=== PATIENT | female | born 1990 | race Caucasian/White ===

== ENCOUNTER 2016-10-30 16:20 | Emergency (ER) | payer MEDICARE, OTHER ==
[~2016-10-30] VITALS: Ht 165.1 cm; Wt 74.8 kg
[2016-10-30] MEDS ORDERED: IBUPROFEN800 MG PO (16:43)
[2016-10-30] MEDS ORDERED: KEFLEX500 MG PO (17:33)
== END 2016-10-30 18:15 | disposition home or self-care (01) ==
LOC: ED 16:20
DX: N61.0 Mastitis without abscess (principal); R42 Dizziness and giddiness; R51 Headache
CPT/HCPCS: 80053; 85025; 96374; 99283; J0690; J7030

== ENCOUNTER 2017-12-03 16:19 | Emergency (ER) | payer MEDICARE ==
[~2017-12-03] VITALS: Ht 165.1 cm; Wt 65.8 kg
[~2017-12-03 16:19] MED LIST: IBUPROFEN800 MG PO; KEFLEX500 MG PO
[2017-12-03] MEDS ORDERED: NAPROSYN500 MG PO (16:47)
[2017-12-03] MEDS ORDERED: ZOFRAN ODT4 MG SL (16:47)
== END 2017-12-03 17:11 | disposition home or self-care (01) ==
LOC: ED 16:19
DX: J98.9 Respiratory disorder, unspecified (principal); B97.89 Other viral agents as the cause of diseases classified elsewhere; F17.200 Nicotine dependence, unspecified, uncomplicated
CPT/HCPCS: 96374; 99283; J1885

== ENCOUNTER 2020-07-30 15:58 | Emergency (ER) | payer OTHER ==
[~2020-07-30] VITALS: Ht 165.1 cm; Wt 59.0 kg
[~2020-07-30 15:58] MED LIST changes: +ADDERALL 10 MG10 MG PO; +AMPHETAMINE SAL10 MG PO; +BUPROPION XL300 MG PO; +HYDROXYZINE PAM25 MG PO; +METHYLPHENIDATE5 MG PO; +NAPROSYN500 MG PO; +ONDANSETRON ODT8 MG PO; +ONDANSETRON ODT8 MG SL; +SERTRALINE HCL100 MG PO; +ZOFRAN ODT4 MG SL; +ZOFRAN4 MG PO
--- OUTSIDE RECORDS SUMMARY | 2020-07-30 16:06 | XMS ---
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 Care History Medical/Surgical 05/19/2020 [facility] - Patient is currently established with [facility]. If patient is seen in the ED during business hours. Please contact CHWs at [facility]. Care Recommendation: If this patient has had 5 or more Emergency Department visits in the last 12 months.\T\nbsp; Patient will require education on the scope and purpose of the ED as an acute care provider not a Primary Care Provider and should not be utilized for chronic conditions.\T\nbsp; These are guidelines and the provider should exercise clinical judgment when providing care. E.D. VISIT COUNT (12 MO.) 1 [facility] 2 [facility] TOTAL 3 NOTE: Visits indicate total known visits. ED/C VISIT TRACKING (12 MO.) 07/30/2020 16:00 [facility] TYPE: Emergency COMPLAINT: - SELF CUTTING 05/22/2020 15:41 [facility] TYPE: Emergency DIAGNOSES: - Altered Mental Status - Acidosis - Unspecified abdominal pain - Transient alteration of awareness - Other symptoms and signs involving cognitive functions and awareness 05/18/2020 03:45 [facility] TYPE: Emergency COMPLAINT: - VOMITING INPATIENT VISIT TRACKING (12 MO.) 05/18/2020 03:46 [facility] TYPE: Observation COMPLAINT: - INTRACTABLE VOMITING, HYPOKALEMIA DIAGNOSES: - Bipolar disorder, current episode mixed, severe, without psychotic features - Nausea with vomiting, unspecified - Hypokalemia - Anxiety disorder, unspecified - Nicotine dependence, unspecified, uncomplicated [email or web address]
[2020-07-30] MEDS ORDERED: HYDRALAZINE HCL25 MG PO (18:30)
== END 2020-07-30 18:57 | disposition home or self-care (01) ==
LOC: ED 15:58
DX: S71.112A Laceration without foreign body, left thigh, initial encounter (principal); S71.111A Laceration without foreign body, right thigh, initial encounter; S41.112A Laceration without foreign body of left upper arm, initial encounter; F41.9 Anxiety disorder, unspecified; W45.8XXA Other foreign body or object entering through skin, initial encounter; F17.200 Nicotine dependence, unspecified, uncomplicated; Z79.899 Other long term (current) drug therapy
CPT/HCPCS: 99283

== ENCOUNTER 2020-10-10 02:39 | Emergency (ER) | payer OTHER ==
[~2020-10-10] VITALS: Ht 165.1 cm; Wt 59.0 kg
[~2020-10-10 02:39] MED LIST changes: +HYDRALAZINE HCL25 MG PO
--- OUTSIDE RECORDS SUMMARY | 2020-10-10 02:42 | XMS ---
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 05/19/2020-Current PHONE: [phone] Marcelo has no Care Guidelines for this patient. Care History Medical/Surgical 05/19/2020 [facility] - Patient is currently established with [facility]. If patient is seen in the ED during business hours. Please contact CHWs at [facility]. Care Recommendation: If this patient has had [...] care. E.D. VISIT COUNT (12 MO.) 1 [facility] 3 [facility] TOTAL 4 NOTE: Visits indicate total known visits. 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 - Laceration without foreign body of left upper arm, initial encounter - Laceration without foreign body, right thigh, initial encounter 05/22/2020 15:41 [facility] TYPE: Emergency DIAGNOSES: - Altered Mental Status - Acidosis - Unspecified abdominal pain - Transient alteration of awareness - Other symptoms and signs involving cognitive functions and awareness 05/18/2020 03:45 [facility] TYPE: Emergency COMPLAINT: - VOMITING INPATIENT VISIT TRACKING (12 MO.) 05/18/2020 03:46 [facility] TYPE: Observation COMPLAINT: - INTRACTABLE VOMITING, HYPOKALEMIA DIAGNOSES: - Bipolar disorder, current episode mixed, severe, without psychotic features - Nausea with vomiting, unspecified - Hypokalemia - Anxiety disorder, unspecified - Nicotine dependence, unspecified, uncomplicated [email or web address]
[2020-10-10] MEDS ORDERED: ZOFRAN4 MG PO (05:09)
[2020-10-10] MEDS ORDERED: REGLAN10 MG PO (15:05)
== END 2020-10-10 06:29 | disposition home or self-care (01) ==
LOC: ED 02:39
DX: K29.00 Acute gastritis without bleeding (principal); F17.200 Nicotine dependence, unspecified, uncomplicated; Z79.899 Other long term (current) drug therapy
CPT/HCPCS: 80053; 81001; 83690; 84703; 85025; 96374; 96375; 99284-25; G0480; J2405; J2765; J7030

== ENCOUNTER 2020-10-10 08:31 | Emergency (ER) | payer OTHER ==
[~2020-10-10] VITALS: Ht 165.1 cm; Wt 59.0 kg
--- OUTSIDE RECORDS SUMMARY | 2020-10-10 13:36 | XMS ---
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 Care History Medical/Surgical 05/19/2020 [facility] - Patient is currently established with [facility]. If patient is seen in the ED during business hours. Please contact CHWs at [facility]. Care Recommendation: If this patient has had [...] care. [facility] MO[facility] TOTAL 5 NOTE: Visits indicate total known visits. 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 TYPE: Observation COMPLAINT: - INTRACTABLE VOMITING, HYPOKALEMIA DIAGNOSES: - Bipolar disorder, current episode mixed, severe, without psychotic features - Nausea with vomiting, unspecified - Hypokalemia - Anxiety disorder, unspecified - Nicotine dependence, unspecified, uncomplicated [email or web address]
[2020-10-10] MEDS ORDERED: REGLAN10 MG PO (15:05)
== END 2020-10-10 15:15 | disposition home or self-care (01) ==
LOC: ED 08:31
DX: R10.9 Unspecified abdominal pain (principal); F17.200 Nicotine dependence, unspecified, uncomplicated; Z79.899 Other long term (current) drug therapy
CPT/HCPCS: 74177; 76705; 80053; 81001; 83690; 83735; 84703; 85025; 96375; 96376; 99284-25; J1790; J2060; J2405; J7030; Q9967

== ENCOUNTER 2023-10-28 09:45 | Day surgery (SDC) | payer OTHER ==
[~2023-10-28 09:45] MED LIST changes: +CEFAZOLIN SODIUM 2 GM/20 ML SYR IV SCH; +CEPHALEXIN500 M1 PO; +IBLOOD GLUCOSE TEST STRIP 1 EA TEST VI PRN; +LACTATED RINGER'S 1,000 ML IV SCH; +LIDOCAINE HCL 1% 5 ML SDV INJ ONE; +REGLAN10 MG PO
[2023-10-28 10:21] VITALS: BP 117/68
[2023-10-28] MEDS ORDERED: VANCOMYCIN HCL/D5W 1 GM/270 ML PIGGYBACK KIT IV SCH (10:42)
[2023-10-28] MEDS ORDERED: VANCOMYCIN HCL 1,000 MG in DEXTROSE 5% 250 ML IV SCH (11:00)
[2023-10-28 11:19] LABS: BASOPHILS 0.9 % (0-2); EOSINOPHILS 1.1 % (0-6); HEMATOCRIT 38.7 % (35.0-50.0); HEMOGLOBIN 12.9 g/dL (12.0-18.0); LYMPHOCYTES 24.3 % (24-44); MCH 31.1 (27-36); MCHC 33.4 g/dl (30-36); MCV 93.3 fl (81-99); MONOCYTES 5.3 % (0-12); NEUTROPHILS 68.4 % (39-80); PLATELET COUNT 302 K/uL (140-440); RBC 4.14 M/ul (4.3-5.7); RDW 12.6 (10.5-15.0)
--- NOTE | 2023-10-28 11:30 | NUR ---
IN ROOM AT THIS TIME FOR VANCO IVT, WARM BLANKETS PROVIDED. PT STATED NO FURTHER QUESTIONS OR NEEDS AT THIS TIME.
[2023-10-28 11:31] LABS: ALBUMIN 4.3 g/dL (3.4-5.0); ALBUMIN/GLOBULIN RATIO 1.16 (1.1-2.4); ANION GAP 12.7 (7-21); BUN/CREATININE RATIO 15.74 (6.0-28.6); CALCIUM 9.2 mg/dL (8.5-10.1); CREATININE, SERUM 1.08 mg/dL (0.55-1.02); POTASSIUM 3.7 mmol/L (3.5-5.1)
[2023-10-28] MEDS ORDERED: Ropivacaine HCl 0.5% 30 ML VIAL ONE (11:54)
[2023-10-28] MEDS ORDERED: SODIUM CHLORIDE 0.9% 20 ML IV ONE (11:54)
[2023-10-28] MEDS ORDERED: DEXAMETHASONE SOD PHOS 4 MG/ML VIAL ONE ×2 (11:54→13:07)
[2023-10-28] MEDS ORDERED: dexmedeTOMIDine HCl 200 MCG/2 ML VIAL ONE (11:54)
[2023-10-28] MEDS ORDERED: propofoL 200 MG/20 ML VIAL ONE (11:54)
[2023-10-28] MEDS ORDERED: LIDOCAINE HCL 2% 5 ML SDV ONE (11:54)
[2023-10-28 12:51] LABS: AMPHETAMINES, URINE POSITIVE (NEGATIVE); BARBITURATES, URINE NEGATIVE (NEGATIVE); BENZODIAZEPINE, URINE NEGATIVE (NEGATIVE); BUPRENORPHINE, URINE NEGATIVE (NEGATIVE); CANNABINOID, URINE POSITIVE (NEGATIVE); COCAINE, URINE NEGATIVE (NEGATIVE); ECSTASY, URINE POSITIVE (NEGATIVE); FENTANYL, URINE NEGATIVE (NEGATIVE); METHADONE, URINE NEGATIVE (NEGATIVE); OPIATES, URINE NEGATIVE (NEGATIVE); OXYCODONE, URINE NEGATIVE (NEGATIVE); PHENCYCLIDINE, URINE NEGATIVE (NEGATIVE)
[2023-10-28] MEDS ORDERED: ondansetron HCL 4 MG/2 ML VIAL ONE (13:07)
[2023-10-28] MEDS ORDERED: KETOROLAC TROMETHAMINE 30 MG/ML VIAL ONE (13:07)
[2023-10-28] MEDS ORDERED: ePHEDrine sulfate 50 MG/ML AMP ONE (13:07)
[2023-10-28] MEDS ORDERED: HYDROCODON-ACE1 EA11 PO (13:24)
--- NOTE | 2023-10-28 13:39 | NUR ---
10/28/23 1339 Preeti Song PATIENT IS NOT RESPONSIVE TO LOUD VOICE AND FIRM TOUCH UPON ARRIVAL IN PACU.
--- NOTE | 2023-10-28 14:01 | NUR ---
PT ARRIVES FROM PACU TO DS UNIT VIA STRETCHER. PT IS A&O AND STATES SHE HAS NO PAIN AT THIS TIME. RT HAND IS ELEVATED ON PILLOW W/ICE PACK IN PLACE. PT ABLE TO SLIGHTLY WIGGLE FINGERS, BUT STATES NUBMNESS THROUGHOUT RUE. PT PROVIDED HER CELL PHONE, ICE WATER, AND PUDDING. PT CURRENTLY ON FACETIME. CALL LIGHT WITHIN REACH, PT STATES NO FURTHER NEEDS OR QUESTIONS AT THIS TIME.
[2023-10-28 14:11] VITALS: BP 122/68
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
[2023-10-28 15:15] VITALS: BP 128/72
--- NOTE | 2023-10-28 15:20 | NUR ---
PT STATES NEED TO URINE VOID. PT SITS AT BEDSIDE AND STATES NO NAUSEA/DIZZINESS AT THIS TIME. PT TO BATHROOM W/THIS RN STANDBY ASSIST. URINE VOID OF 650 ML CLEAR/YELLOW URINE. PT BACK TO ROOM AND THIS RN ASSISTS PT W/GETTING DRESSED. PT NOW RESTING IN BED, CALL LIGHT WITHIN REACH.
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
--- NOTE | 2023-10-28 15:55 | NUR ---
IN PT ROOM FOR DISCHARGE EDUCATION. PT STATES VERBAL UNDERSTANDING AND NO FURTHER QUESTIONS AT THIS TIME. IV DC'ED, WNL, GAUZE/COBAN IN PLACE. PT SITTING IN ROOM WAITING FOR EX TO COME PICK HER UP. CALL LIGHT WITHIN REACH. PT STATES NO FURTHER NEEDS AT THIS TIME.
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
--- NOTE | 2023-10-28 21:00 | EKG ---
[facility] [address] [place] [address] Signed Normal sinus rhythm with sinus arrhythmia Normal ECG No previous ECGs available Confirmed by Cipriano Juarez MD () on 10/28/2023 9:00:07 PM Electronically Signed By: CIPRIANO JUAREZ MD 10/28/23 2100 PATIENT NAME: STEVO WALKER Electrocardiogram DATE OF : [birth year] PHYSICIAN: CIPRIANO JUAREZ MD REPORT #: [id number] REPORT IS CONFIDENTIAL AND NOT TO BE RELEASED WITHOUT AUTHORIZATION
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
[2023-12-15] MEDS ORDERED: BACTRIM DS TAB1 EACH PO (08:01)
[2023-12-15] MEDS ORDERED: CEPHALEXIN500 M1 PO (08:01)
[2023-12-16] MEDS ORDERED: ONDANSETRON ODT8 MG PO (18:56)
== END 2023-10-28 16:10 | disposition home or self-care (01) ==
LOC: DS 09:45 → FBC 09:46 → DS 09:54
PROVIDERS: Nurse Anesthetist, Certified Registered; ATTEND Specialist
PROC: 0PSP04Z Reposition Right Metacarpal with Internal Fixation Device, Open Approach (ICD-10-PCS; principal; 2023-10-28 12:00)
DX: S62.326A Displaced fracture of shaft of fifth metacarpal bone, right hand, initial encounter for closed fracture (principal); F31.9 Bipolar disorder, unspecified; F43.10 Post-traumatic stress disorder, unspecified; F90.9 Attention-deficit hyperactivity disorder, unspecified type; X58.XXXA Exposure to other specified factors, initial encounter
CPT/HCPCS: 01830; 36415; 64417; 73130; 80053; 80307; 84703; 85025; 93005; 93010; C1713; C1769; J1100; J1885; J2001; J2405; J2704; J2795; J3370; J7060; J7121

== ENCOUNTER 2023-11-11 16:53 | Emergency (ER) | payer OTHER ==
[~2023-11-11] VITALS: Ht 165.1 cm; Wt 65.5 kg
[~2023-11-11 16:53] MED LIST changes: -CEFAZOLIN SODIUM 2 GM/20 ML SYR IV SCH; +HYDROCODON-ACE1 EA11 PO; -IBLOOD GLUCOSE TEST STRIP 1 EA TEST VI PRN; -LACTATED RINGER'S 1,000 ML IV SCH; -LIDOCAINE HCL 1% 5 ML SDV INJ ONE
[2023-11-11] MEDS ORDERED: BACTRIM DS TAB1 EACH PO (17:46)
[2023-11-11 18:00] VITALS: BP 122/75
== END 2023-11-11 18:06 | disposition home or self-care (01) ==
LOC: ED 16:53
DX: L02.415 Cutaneous abscess of right lower limb (principal); F17.200 Nicotine dependence, unspecified, uncomplicated
CPT/HCPCS: 99282

== ENCOUNTER 2023-11-13 20:33 | Emergency (ER) | payer OTHER ==
[~2023-11-13] VITALS: Ht 165.1 cm; Wt 68.0 kg
[~2023-11-13 20:33] MED LIST changes: +BACTRIM DS TAB1 EACH PO
[2023-11-13 22:29] VITALS: BP 116/69
== END 2023-11-13 22:29 | disposition home or self-care (01) ==
LOC: ED 20:33
DX: L02.11 Cutaneous abscess of neck (principal); L03.012 Cellulitis of left finger; F43.10 Post-traumatic stress disorder, unspecified; F17.200 Nicotine dependence, unspecified, uncomplicated; Z79.2 Long term (current) use of antibiotics
CPT/HCPCS: 10060; 99283-25

== ENCOUNTER 2024-03-20 18:51 | Emergency (ER) | payer OTHER ==
[~2024-03-20] VITALS: Ht 165.1 cm; Wt 68.7 kg
[2024-03-20 20:27] LABS: INFLUENZA B NAA NEGATIVE (NEGATIVE); RESPIRATORY SYNCYTIAL VIR NAA NEGATIVE (NEGATIVE)
[2024-03-20] MEDS ORDERED: PREDNISONE20 MG PO (20:41)
[2024-03-20] MEDS ORDERED: ZITHROMAX TRI-500 MG PO (20:41)
[2024-03-20] MEDS ORDERED: predniSONE 20 MG TAB PO ONE (20:45)
[2024-03-20] MEDS ORDERED: ACETAMINOPHEN 500 MG TAB PO ONE (20:45)
[2024-03-20 21:06] VITALS: BP 115/64
== END 2024-03-20 21:05 | disposition home or self-care (01) ==
LOC: ED 18:51
PROVIDERS: Internal Medicine
DX: J03.80 Acute tonsillitis due to other specified organisms (principal); B97.89 Other viral agents as the cause of diseases classified elsewhere; F84.0 Autistic disorder; F17.200 Nicotine dependence, unspecified, uncomplicated
CPT/HCPCS: 87502; 87651; 99283; A9270; J7512; U0002

== ENCOUNTER 2024-08-01 19:54 | Emergency (ER) | payer OTHER ==
[~2024-08-01] VITALS: Ht 165.1 cm; Wt 74.0 kg
--- NOTE | ~2024-08-01 | EKG ---
[facility] [address] [facility] [place], [place] [address] Draft EK completed, results pending confirmation PATIENT NAME: DioniSTEVO Electrocardiogram DATE OF : [birth year] PHYSICIAN: PRELIMINARY REPORT #: [id number] REPORT IS CONFIDENTIAL AND NOT TO BE RELEASED WITHOUT AUTHORIZATION
[~2024-08-01 19:54] MED LIST changes: +PREDNISONE20 MG PO; +ZITHROMAX TRI-500 MG PO
[2024-08-01 20:31] LABS: BASOPHILS 0.8 % (0-2); EOSINOPHILS 4.5 % (0-6); HEMATOCRIT 37.7 % (35.0-50.0); HEMOGLOBIN 12.9 g/dL (12.0-18.0); LYMPHOCYTES 25.5 % (24-44); MCH 30.8 (27-36); MCHC 34.3 g/dl (30-36); MCV 89.7 fl (81-99); MONOCYTES 7.4 % (0-12); NEUTROPHILS 61.8 % (39-80); PLATELET COUNT 382 K/uL (140-440)
[2024-08-01 20:50] LABS: ALBUMIN 3.9 g/dL (3.4-5.0); ALBUMIN/GLOBULIN RATIO 1.08 (1.1-2.4); BILIRUBIN, TOTAL 0.3 mg/dL (0.2-1.0); BUN/CREATININE RATIO 17.04 (6.0-28.6); CALCIUM 9.3 mg/dL (8.5-10.1); CREATININE, SERUM 0.88 mg/dL (0.55-1.02); PROTEIN, TOTAL 7.5 g/dL (6.4-8.2)
[2024-08-01] MEDS ORDERED: FUROSEMIDE 20 MG/2 ML VIAL IV ONE (21:15)
[2024-08-01] MEDS ORDERED: ACYCLOVIR 400 MG TAB PO ONE (21:15)
[2024-08-01] MEDS ORDERED: ACYCLOVIR400 MG PO (21:17)
[2024-08-01] MEDS ORDERED: NALOXONE 4 MG NASAL SPRAY #2 HOME.PACK NAS ONE (21:30)
[2024-08-01] MEDS ORDERED: Buprenorphine/Naloxone 8/2mg 1 EACH HOME.PACK SL ONE (21:30)
[2024-08-01 22:04] VITALS: BP 121/67
[2024-08-04 15:16] LABS: HSV 1 SUBTYPE BY PCR Not Detected (()); HSV 2 SUBTYPE BY PCR Not Detected (()); HSV SUBTYPE SOURCE Blood (())
== END 2024-08-01 22:06 | disposition home or self-care (01) ==
LOC: ED 19:54
PROVIDERS: Family Medicine
DX: R60.0 Localized edema (principal); F43.10 Post-traumatic stress disorder, unspecified; F17.200 Nicotine dependence, unspecified, uncomplicated; Z20.2 Contact with and (suspected) exposure to infections with a predominantly sexual mode of transmission; Z79.52 Long term (current) use of systemic steroids
CPT/HCPCS: 36415; 80053; 83735; 83880; 85025; 87529; 93005; 93010; 96374; 99284-25; A9270; J1938; J3490

== ENCOUNTER 2024-08-09 21:11 | Emergency (ER) | payer OTHER ==
[~2024-08-09] VITALS: Ht 165.1 cm; Wt 77.7 kg
[~2024-08-09 21:11] MED LIST changes: +ACYCLOVIR400 MG PO
[2024-08-09] MEDS ORDERED: POTASSIUM CHLORIDE 10 MEQ TABCR PO ONE (23:30)
[2024-08-09] MEDS ORDERED: FUROSEMIDE 20 MG TAB PO ONE (23:30)
[2024-08-09] MEDS ORDERED: LASIX20 MG PO ×2 (23:30→23:49)
[2024-08-09] MEDS ORDERED: POTASSIUM CHLO10 ME2 PO (23:32)
[2024-08-09] MEDS ORDERED: SUBOXONE 12 MG1 EACH SL (23:32)
[2024-08-09] MEDS ORDERED: OLANZAPINE5 MG PO (23:32)
[2024-08-09] MEDS ORDERED: SUBOXONE 8 MG-1 EAC1 SL ×2 (23:34→23:35)
[2024-08-09 23:50] VITALS: BP 117/91
== END 2024-08-09 23:50 | disposition home or self-care (01) ==
LOC: ED 21:11
DX: R60.0 Localized edema (principal); F31.9 Bipolar disorder, unspecified; F15.90 Other stimulant use, unspecified, uncomplicated; F43.10 Post-traumatic stress disorder, unspecified; F17.200 Nicotine dependence, unspecified, uncomplicated
CPT/HCPCS: 99283; A9270